=== PATIENT | female | born 1985 | race Caucasian/White ===

== ENCOUNTER 2018-12-10 08:35 | Outpatient (CLI) | payer OTHER ==
--- NOTE | 2018-12-10 12:41 | ULT ---
OB ULTRASOUND: HISTORY: Size and dates. FINDINGS: A single viable intrauterine is identified. Gestational age by ultrasound is 20 weeks 3 da ys. BPD: 19 weeks 2 days HC: 20 weeks 1 day AC: 21 weeks 2 days FL: 20 weeks 5 days EFW: 390 grams. Amniotic fluid: Adequate. MARTIN: 14.8 cm. Placenta: Posterior. Presentation: Transverse. heart rate: 134 b.p.m. Anatomy evaluated included intracranial contents, 4-chamber heart, stomach, kidneys, cord insertion, bladder, spine, lips, nose, extremities, and 3-vessel cord. No abnormality identified. IMPRESSION: A 20-week 3 day gestation by ultrasound measurement. POS: [facility]
== END 2018-12-10 08:36 | disposition home or self-care (01) ==
LOC: NAV ULT 08:35
PROVIDERS: ATTEND Family Medicine
DX: O09.522 Supervision of elderly multigravida, second trimester (principal); Z3A.20 20 weeks gestation of pregnancy
CPT/HCPCS: 76805